=== PATIENT | male | born 1960 | race Caucasian/White ===

== ENCOUNTER 2021-01-26 10:48 | Emergency (ER) | payer OTHER ==
[~2021-01-26] VITALS: Ht 182.9 cm; Wt 110.0 kg
[~2021-01-26 10:48] MED LIST: AMLO-187 PO; AMLO10TA4 PO; ASPI325T8 PO; ATOR40TA PO; ATOR40TA59 PO; Aspirin PO; LOSA-73 PO; OMEG1CAP6 PO
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
[2021-01-26] MEDS: CYCLOBENZAPRINE 10 MG TABLET. PO ONE (12:39)
[2021-01-26] MEDS: HYDROcodone/APAP 5/325MG 1 TAB TABLET PO ONE (12:39)
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
[2021-01-26] MEDS ORDERED: HYDR-2761 PO (13:19)
[2021-01-26] MEDS ORDERED: AMLO-187 PO (13:19)
[2021-01-26] MEDS ORDERED: CYCL10TA2 PO (13:19)
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
[2021-01-26 13:31] VITALS: BP 205/121
== END 2021-01-26 13:34 | disposition home or self-care (01) ==
LOC: ER 10:48
DX: S13.4XXA Sprain of ligaments of cervical spine, initial encounter (principal); M54.6 Pain in thoracic spine; M25.511 Pain in right shoulder; M25.512 Pain in left shoulder; I10 Essential (primary) hypertension; F12.90 Cannabis use, unspecified, uncomplicated; Z87.891 Personal history of nicotine dependence; Z98.890 Other specified postprocedural states; V98.8XXA Other specified transport accidents, initial encounter; Y93.89 Activity, other specified; Y92.89 Other specified places as the place of occurrence of the external cause; Y99.8 Other external cause status
CPT/HCPCS: 70450; 72125; 72128; 72131; 99285; 73030-50